=== PATIENT | male | born 1955 | race Caucasian/White ===

== ENCOUNTER 2018-12-01 17:44 | Emergency (ER) | payer OTHER, BC ==
[~2018-12-01] VITALS: Ht 167.6 cm; Wt 79.4 kg
[2018-12-01] MEDS ORDERED: RANITIDINE HCL300 M1 (19:10)
[2018-12-01] MEDS ORDERED: LEXAPRO20 MG (19:11)
[2018-12-01] MEDS ORDERED: CARVEDILOL25 MG (19:12)
[2018-12-01] MEDS ORDERED: L THYROXINE (19:13)
[2018-12-01] MEDS ORDERED: LIPITOR20 MG (19:14)
[2018-12-01] MEDS ORDERED: PROTONIX40 M1 (19:15)
[2018-12-01] MEDS ORDERED: NUEDEXTA 20-101 EACH (19:15)
[2018-12-01] MEDS ORDERED: XANAX XR0.5 MG (19:15)
[2018-12-01] MEDS ORDERED: LOSARTAN POTASS50 MG (19:16)
[2018-12-01] MEDS ORDERED: LAMOTRIGINE (19:17)
[2018-12-01] MEDS ORDERED: ISOSORBIDE DINI30 MG (19:17)
[2018-12-01] MEDS ORDERED: SYMBICORT 80/10.2 GM (19:18)
[2018-12-01] MEDS ORDERED: ADULT ASPIRIN81 MG (19:18)
== END 2018-12-01 21:53 | disposition home or self-care (01) ==
LOC: ER 17:44
DX: H66.91 Otitis media, unspecified, right ear (principal)